=== PATIENT | female | born 1995 | race Caucasian/White ===

== ENCOUNTER 2017-03-26 19:44 | Emergency (ER) | payer OTHER ==
[~2017-03-26] VITALS: Ht 157.5 cm; Wt 82.9 kg
[2017-03-26 19:46] VITALS: BP 131/94
[2017-03-26 21:03] LABS: RAPID INFLUENZA A Negative (Negative); RAPID INFLUENZA B POSITIVE (Negative)
== END 2017-03-26 21:34 ==
LOC: ED 21:31
DX: J11.1 Influenza due to unidentified influenza virus with other respiratory manifestations (principal); J06.9 Acute upper respiratory infection, unspecified; J31.0 Chronic rhinitis; J40 Bronchitis, not specified as acute or chronic
CPT/HCPCS: 71046; 87400; 93005; 99285